=== PATIENT | female | born 2000 | race Caucasian/White ===

== ENCOUNTER 2018-03-07 00:52 | Emergency (ER) | payer OTHER ==
--- NOTE | 2018-03-07 01:01 | EDPHY ---
H & P Stated Complaint: R arm, vomited blood Time Seen by Provider: 03/07/18 01:01 HPI/ROS: HPI CHIEF COMPLAINT: Right arm pain. Nausea, vomiting. Anxiety attack HISTORY OF PRESENT ILLNESS: 17-year-old female presents emergency room with right arm pain, she states she has been suffering from arm pain for over week after she had a tonsillectomy performed had an IV placed in her right arm. This evening she began having nausea vomiting. She vomited multiple times mainly bile. She did have alcohol this evening. However after multiple episodes of vomiting there was some blood in her vomit. This prompted her friends to become concerned so they brought her to the emergency room. She does complain of nausea no significant abdominal pain does complain of right arm pain. No chest pain or shortness of breath. No hemoptysis. No pleuritic pain. Of note patient upon arrival is anxious and hyperventilating. She reports to me she is having anxiety attack Past Medical History: Denies significant medical history Past Surgical History: Recent tonsillectomy Social History: Denies daily use of drugs or tobacco. Alcohol use. Family History: Noncontributory ROS REVIEW OF SYSTEMS: 10 Systems were reviewed and negative with the exception of the elements mentioned in the history of present illness. Exam Constitutional nontoxic no acute distress, anxious, hyperventilating triage nursing summary reviewed, vital signs reviewed, awake/alert. Eyes normal conjunctivae and sclera, EOMI, PERRLA. HENT normal inspection, atraumatic, moist mucus membranes, no epistaxis, neck supple/ no meningismus, no raccoon eyes. Respiratory hyperventilating, clear to auscultation bilaterally, normal breath sounds, no respiratory distress, no wheezing. Cardiovascular rate normal, regular rhythm, no murmur, no edema, distal pulses normal. Gastrointestinal soft, non-tender, no rebound, no guarding, normal bowel sounds, no distension, no pulsatile mass. Genitourinary no CVA tenderness. Musculoskeletal right upper extremity: No significant swelling. 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 Nontender palpation mid bicep. no midline vertebral tenderness, full range of motion, no calf swelling, no tenderness of extremities, no meningismus, good pulses, neurovascularly intact. Skin pink, warm, & dry, no rash, skin atraumatic. Neurologic awake, alert and oriented x 3, AAOx3, moves all 4 extremities equally, motor intact, sensory intact, CN II-XII intact, normal cerebellar, normal vision, normal speech. Psychiatric normal mood/affect. Heme/Lymph/Immune no lymphadenopathy. Differential Diagnosis: Includes but is not limited to in a particular order superficial phlebitis, DVT, gastritis, GI illness, Radha-Guallpa tear, peptic ulcer disease Medical Decision Making: The plan for this patient IV establishment IV fluid bolus, IV Pepcid, IV Zofran IV Ativan for anxiety, ultrasound right upper extremity rule out DVT or phlebitis. Re-evaluation: Ultrasound of the right upper extremity shows superficial thrombophlebitis. No evidence of DVT. Dr. Copeland [id number]: Patient ambulatory. No acute distress. Stable gait. Drink fluids well without vomiting. Ultrasound showed no DVT but superficial phlebitis. Recommend warm compresses. Anti-inflammatory pain medicine. Return precautions discussed. Return emergency room if there is any worsening symptoms questions or concerns. Source: Patient - Personal History LMP (Females 10-55): 15-21 Days Ago Current Tetanus/Diphtheria Vaccine: Yes Current Tetanus Diphtheria and Acellular Pertussis (TDAP): Yes - Medical/Surgical History Hx Asthma: No Hx Chronic Respiratory Disease: No Hx Diabetes: No Hx Cardiac Disease: No Hx Renal Disease: No Hx Cirrhosis: No Hx Alcoholism: No Hx HIV/AIDS: No Hx Splenectomy or Spleen Trauma: No - Social History Smoking Status: Never smoked Constitutional: Initial Vital Signs Temperature (C) 36.7 C 03/07/18 00:57 Heart Rate 113 H 03/07/18 00:57 Respiratory Rate 20 03/07/18 00:57 Blood Pressure 121/76 H 03/07/18 00:57 O2 Sat (%) 99 03/07/18 00:57 O2 Delivery Mode Room Air Allergies/Adverse Reactions: tree nut [Nuts] Allergy (Verified 03/07/18 00:57) Home Medications: Medication Instructions Recorded [place] 28 Tablet 03/07/18 Medical Decision Making - Data Points Laboratory Results: Laboratory Results 03/07/18 01:15 03/07/18 01:15 03/07/18 03/07/18 03/07/18 02:30 01:15 01:15 WBC RBC Hgb Hct MCV MCH MCHC RDW Plt Count MPV Neut % (Auto) Lymph % (Auto) [place] % (Auto) Eos % (Auto) Baso % (Auto) Nucleat RBC Rel Count Absolute Neuts (auto) Absolute Lymphs (auto) Absolute Monos (auto) Absolute Eos (auto) Absolute Basos (auto) Absolute Nucleated RBC Immature Gran % Immature Gran # Sodium 139 mEq/L mEq/L (135-145) Potassium 4.2 mEq/L mEq/L (3.3-5.0) Chloride 112 mEq/L H mEq/L (97-110) Carbon Dioxide 18 mEq/l L mEq/l (22-31) Anion Gap 9 mEq/L mEq/L (8-16) BUN 7 mg/dL mg/dL (7-23) Creatinine 0.5 mg/dL L mg/dL (0.6-1.0) Estimated GFR > 60 Glucose 90 mg/dL mg/dL (70-100) Calcium 9.1 mg/dL mg/dL (8.5-10.4) Total Bilirubin 0.2 mg/dL mg/dL (0.1-1.4) Conjugated Bilirubin 0.0 mg/dL mg/dL (0.0-0.5) Unconjugated Bilirubin 0.2 mg/dL mg/dL (0.0-1.1) AST 16 IU/L IU/L (14-46) ALT 23 IU/L IU/L (9-52) Alkaline Phosphatase 49 IU/L IU/L (38-126) Total Protein 6.5 g/dL g/dL (6.3-8.2) Albumin 3.7 g/dL g/dL (3.5-5.0) Lipase 325 IU/L H IU/L (23-300) Beta HCG, Qual NEGATIVE Urine Color COLORLESS Urine Appearance CLEAR Urine pH 7.0 (5.0-7.5) Ur Specific [place] 1.004 (1.002-1.030) Urine Protein NEGATIVE (NEGATIVE) Urine Ketones 1+ H (NEGATIVE) Urine Blood 1+ H (NEGATIVE) Urine Nitrate NEGATIVE (NEGATIVE) Urine Bilirubin NEGATIVE (NEGATIVE) Urine Urobilinogen NEGATIVE EU EU (0.2-1.0) Ur Leukocyte Esterase NEGATIVE (NEGATIVE) Urine RBC 1-3 /hpf /hpf (0-3) Urine WBC 1-3 /hpf /hpf (0-3) Ur Epithelial Cells NONE SEEN /lpf /lpf (NONE-1+) Urine Mucus TRACE /lpf /lpf (NONE-1+) Urine Glucose NEGATIVE (NEGATIVE) Ethyl Alcohol 158 mg/dL H mg/dL (0-10) 03/07/18 01:15 WBC 8.95 10^3/uL 10^3/uL (3.80-9.50) RBC 4.53 10^6/uL 10^6/uL (4.18-5.33) Hgb 14.0 g/dL g/dL (12.6-16.3) Hct 39.3 % % (38.0-47.0) MCV 86.8 fL fL (81.5-99.8) MCH 30.9 pg pg (27.9-34.1) MCHC 35.6 g/dL g/dL (32.4-36.7) RDW 12.5 % % (11.5-15.2) Plt Count 297 10^3/uL 10^3/uL (150-400) MPV 10.5 fL fL (8.7-11.7) Neut % (Auto) 78.8 % H % (39.3-74.2) Lymph % (Auto) 16.9 % % (15.0-45.0) [place] % (Auto) 3.6 % L % (4.5-13.0) Eos % (Auto) 0.2 % L % (0.6-7.6) Baso % (Auto) 0.1 % L % (0.3-1.7) Nucleat RBC Rel Count 0.0 % % (0.0-0.2) Absolute Neuts (auto) 7.05 10^3/uL H 10^3/uL (1.70-6.50) Absolute Lymphs (auto) 1.51 10^3/uL 10^3/uL (1.00-3.00) Absolute Monos (auto) 0.32 10^3/uL 10^3/uL (0.30-0.80) Absolute Eos (auto) 0.02 10^3/uL L 10^3/uL (0.03-0.40) Absolute Basos (auto) 0.01 10^3/uL L 10^3/uL (0.02-0.10) Absolute Nucleated RBC 0.00 10^3/uL 10^3/uL (0-0.01) Immature Gran % 0.4 % % (0.0-1.1) Immature Gran # 0.04 10^3/uL 10^3/uL (0.00-0.10) Sodium Potassium Chloride Carbon Dioxide Anion Gap BUN Creatinine Estimated GFR Glucose Calcium Total Bilirubin Conjugated Bilirubin Unconjugated Bilirubin AST ALT Alkaline Phosphatase Total Protein Albumin Lipase Beta HCG, Qual Urine Color Urine Appearance Urine pH Ur Specific [place] Urine Protein Urine Ketones Urine Blood Urine Nitrate Urine Bilirubin Urine Urobilinogen Ur Leukocyte Esterase Urine RBC Urine WBC Ur Epithelial Cells Urine Mucus Urine Glucose Ethyl Alcohol Medications Given: Discontinued Medications Famotidine (Pepcid) 20 mg IVP EDNOW ONE Stop: 03/07/18 01:06 Last Admin: 03/07/18 01:25 Dose: 20 mg Sodium Chloride (Ns) 1,000 mls @ 0 mls/hr IV EDNOW ONE; Wide Open PRN Reason: Protocol Stop: 03/07/18 01:06 Last Admin: 03/07/18 01:25 Dose: 1,000 mls Sodium Chloride (Ns) 1,000 mls @ 0 mls/hr IV EDNOW ONE; Wide Open PRN Reason: Protocol Stop: 03/07/18 01:06 Last Admin: 03/07/18 01:58 Dose: 1,000 mls Lorazepam (Ativan Injection) 1 mg IVP EDNOW ONE Stop: 03/07/18 01:07 Last Admin: 03/07/18 01:24 Dose: 1 mg Ondansetron HCl (Zofran) 4 mg IVP EDNOW ONE Stop: 03/07/18 01:06 Last Admin: 03/07/18 01:25 Dose: 4 mg Departure - Departure Disposition: Home, Routine, Self-Care Clinical Impression: Phlebitis Alcohol intoxication Qualifiers: Complication of substance-induced condition: uncomplicated Qualified Code(s): F10.920 - Alcohol use, unspecified with intoxication, uncomplicated Vomiting Qualifiers: Vomiting type: unspecified Vomiting Intractability: non-intractable Nausea presence: with nausea Qualified Code(s): R11.2 - Nausea with vomiting, unspecified Condition: Good Instructions: Superficial Thrombophlebitis (ED), Alcohol Intoxication (ED), Acute Nausea and Vomiting (ED), Phlebitis (ED) Additional Instructions: 1. Recommend warm compresses. 2. Anti-inflammatory pain medicine Tylenol, Motrin, aspirin 3. Return to the emergency room if there is worsening symptoms. Referrals: NONE *PRIMARY CARE P,. [Primary Care Provider] - As per Instructions
[2018-03-07] MEDS ORDERED: ONDANSETRON 4 MG/2 ML VIAL IVP ONE (01:05)
[2018-03-07] MEDS ORDERED: NS 1,000 ML IV ONE ×2 (01:05)
[2018-03-07] MEDS ORDERED: FAMOTIDINE 20 MG/2 ML SDV IVP ONE (01:05)
[2018-03-07] MEDS ORDERED: LORazepam 2 MG/ML INJ IVP ONE (01:06)
[2018-03-07 01:33] LABS: PLATELET COUNT 297 10^3/uL (150-400)
[2018-03-07 03:48] VITALS: BP 123/70
== END 2018-03-07 03:46 | disposition home or self-care (01) ==
DX: I82.611 Acute embolism and thrombosis of superficial veins of right upper extremity (principal); F10.920 Alcohol use, unspecified with intoxication, uncomplicated; R11.2 Nausea with vomiting, unspecified; E86.9 Volume depletion, unspecified
CPT/HCPCS: 96374; G0480; J2060; J2405